=== PATIENT | male | born 1990 | race Two or more races ===

== ENCOUNTER 2024-12-09 22:04 | Emergency (ER) | payer MEDICAID ==
[~2024-12-09] VITALS: Ht 177.8 cm; Wt 97.3 kg
[2024-12-09 22:15] VITALS: BP 107/56
[2024-12-09 22:51] VITALS: TEMP 98.1
[2024-12-09] MEDS: ketorolac trometh 30MG/ML vial 30 MG/ML VIAL IM STA (22:55)
[2024-12-09] MEDS: ondansetron 4mg rapidly disintigrating tab PO STA (22:55)
[2024-12-09] MEDS: acetaminophen 325mg tablet PO STA (22:55)
[2024-12-09 23:18] VITALS: PULSE 81; RESP 16; O2SAT 98
[2024-12-09] MEDS: ipratropium/albuterol 3ml nebule NEB STA (23:18)
[2024-12-09 23:25] VITALS: PULSE 97; RESP 16
== END 2024-12-09 23:52 | disposition home or self-care (01) ==
LOC: ER 22:06
DX: B34.9 Viral infection, unspecified (principal); Z20.822 Contact with and (suspected) exposure to COVID-19; Z88.2 Allergy status to sulfonamides; Z88.1 Allergy status to other antibiotic agents
CPT/HCPCS: 36415; 71046; 87502; 87503; 87811; 94640; 96372; 99284; J1885; 94760